=== PATIENT | female | born 1985 | race Caucasian/White ===

== ENCOUNTER → 2018-06-12 | Outpatient (CLI) | payer OTHER ==
[~2018-06-12] MED LIST: ALBUTEROL INH PO; BACTRIM DS TAB1 EACH PO; CARISOPRODOL 3350 MG PO; DARVOCET-N 1001 EACH PO; DIFLUCAN150 M1 PO; FLONASE 0.05%50 MCG NS; IBUPROFEN 800800 M1 PO; KEFLEX500 MG PO; LORATIDINE 10 M10 M1 PO; NORCO 5-325 TA1 EACH PO; PRENATAL; TESSALON200 MG PO; ZOFRAN4 MG PO; [UNRECOGNIZED DRUG - REMARK]
== END ==
LOC: M.RAD 09:15
DX: M25.511 Pain in right shoulder (principal); G89.29 Other chronic pain